=== PATIENT | male | born 1965 | race Caucasian/White ===

== ENCOUNTER 2025-06-02 16:06 | Emergency (ER) | payer SELFPAY ==
[2025-06-02 16:26] VITALS: BP 123/77; PULSE 98; RESP 16; TEMP 36.7; O2SAT 95; BMI 23.7
--- NOTE | 2025-06-02 17:44 | ED_ITS ---
HPI - Extremity Problem General: Chief complaint: Extremity Injury, Lower Stated complaint: rt leg inj Time Seen by Provider: 06/02/25 17:21 Source: patient Mode of arrival: ambulatory History of Present Illness: 60yo male presents with significant othe r from urgent care for a right injury that occurred yesterday when he was loading a lawnmower. States he felt a pop in the back of his right leg and has had decreased weightbearing since that time. Patient reports he was sent to the emergency department for an ultrasound to determine if there is a calf injury. He denies any other injury or concern at this time. Associated symptoms: Deny fever(s) Related Data Previous Rx's ?Medication ?Instructions ?Recorded ibuprofen 800 mg tablet 800 mg PO Q8H PRN pain #30 t abs 06/02/25 Allergies Allergy/AdvReac Type Severity Reaction Status Date / Time No Known Allergies Allergy Verified 06/02/25 16:29 Review of Systems Const: Denies: fever(s) or chills Musc: Reports: extremity pain (right calf area) Physical Exam Const: COMMON NORMALS: no acute distress, patient oriented x3, healthy a ppearing and alert ORIENTATION/CONSCIOUSNESS: Yes awake OTHER: Patient is sitting in a wheelchair in the exam room in no acute distress. He is able to give history with no difficulty. He is interactive with exam appropriately. Family is at bedside HENMT: COMMON NORMALS: normocephalic and atraumatic HEAD & SCALP: normocephalic and atraumatic Chest: CHEST: Yes Symmetrical chest wall rise Resp: COMMON NORMALS: normal respiratory effort EFFORT & INSPECTION: Yes able to speak in complete sentences Extremity: RIGHT LOWER EXTREMITY: Yes lower leg (Mild swelling, tenderness to the mid calf area) OTHER: No erythema or ecchymosis noted of the right calf. No tenderness to palpation of the Achilles Neuro: COMMON NORMALS: patient oriented x3 SENSORIUM/ORIENTATION: Yes alert Psych: COMMON NORMALS: cooperative Course Vital Signs: Vital signs: Vital Signs Temperature 98.0 F 06/02/25 16:26 Pulse Rate 98 06/02/25 16:26 Respiratory Rate 16 06/02/25 16:26 Blood Pressure 123/77 06/02/25 16:26 Pulse Oximetry 95 06/02/25 16:26 Oxygen Delivery Me thod Room Air 06/02/25 16:26 MDM - Extremity (Nontraumatic) Medical Decision Making 60yo male presents with significant other from urgent care for a right injury that occurred yesterday when he was loading a lawnmower. States he felt a pop in the back of his right leg and has had decreased weightbearing since that time. Patient reports he was sent to the emergency department for an ultrasound to determine if there is a calf injury. He denies any other injury or concern at this time. Patient is nontoxic in appearance. Vital signs are stable. Patient does have tenderness palpation over the Area. There is no tenderness over the Achilles. The history of the injury as well as the presentation is concerning for a calf strain. Will proceed with a cam boot with heel lifts as well as crutches and referral to orthopedics. High-dose ibuprofen has been sent to patient's pharmacy. Recommend he elevate and apply a cool compress for 10 to 15 minutes at a time. Advise follow-up with orthopedics as soon as possible. Return precautions provided. Patient and family state understanding and had no further questions or concerns at this time. No radiology studies performed this visit Discharge Plan Discharge Patient Disposition: Home Clinical Impression: Strain of right calf muscle Condition: Stable Prescriptions: New ibuprofen 800 mg tablet 800 mg PO Q8H PRN (Reason: pain) Qty: 30 0RF Discharge Orders: Discharge ED (Routine); Ordered 06/02/25 Ordered By: Laureano Small Patient Instructions: Pain Management, Patient Portal & [facility] Instructions Activity Restrictions/Additional Instructions: The injury is likely a strain of your calf Use the provided boot to provide support and protection of the calf. High-dose ibuprofen has been sent to your pharmacy to help with the pain and discomfort Elevate the foot and apply a cool compress for 10 to 15 minutes at a time to help with pain and swelling. A referral has been placed to orthopedics office. Please follow-up as soon as possible Return to the emergency department if any rapid worsening symptoms, further injury, and as needed Print Language: Kinyarwanda Coding Level of Care Code ED Supervisor [employer] [facility] [place]
--- NOTE | 2025-06-05 07:28 | DCPLANNER ---
Message sent to clinic -60yo male presents with significant other from urgent care for a right injury that occurred yesterday when he was loading a lawnmower. States he felt a pop in the back of his right leg and has had decreased weightbearing since that time. Patient reports he was sent to the emergency department for an ultrasound to determine if there is a calf injury. He denies any other injury or concern at this time. Patient is nontoxic in appearance. Vital signs are stable. Patient does have tenderness palpation over the Area. There is no tenderness over the Achilles. The history of the injury as well as the presentation is concerning for a calf strain. Will proceed with a cam boot with heel lifts as well as crutches and referral to orthopedics. High-dose ibuprofen has been sent to patient's pharmacy. Recommend he elevate and apply a cool compress for 10 to 15 minutes at a time. Advise follow-up with orthopedics as soon as possible. Return precautions provided. Patient and family state understanding and had no further questions or concerns at this time. No radiology studies performed this visit
== END 2025-06-02 18:27 | disposition home or self-care (01) ==
PROVIDERS: Emergency Provider Nurse Practitioner
DX: S86.811A Strain of other muscle(s) and tendon(s) at lower leg level, right leg, initial encounter (principal); X58.XXXA Exposure to other specified factors, initial encounter
CPT/HCPCS: 99283; J9999